=== PATIENT | male | born 1965 | race Caucasian/White ===

== ENCOUNTER 2022-06-17 10:07 | Inpatient (IN) | payer MEDICAID ==
[~2022-06-17] VITALS: Ht 157.5 cm; Wt 103.6 kg
[2022-06-17 10:17] VITALS: BP 217/176
[2022-06-17] MEDS ORDERED: LABETALOL 100 MG/20 ML VIAL IVP ONE (10:40)
[2022-06-17] MEDS ORDERED: LABETALOL 20 MG/4 ML VIAL IVP ONE (10:45)
[2022-06-17 11:12] LABS: BASOPHILS # (AUTO) 0.1 K/uL (0.00-0.22); BASOPHILS % (AUTO) 0.8 % (0.0-2.0); EOSINOPHILS # (AUTO) 0.1 K/uL (0-0.4); EOSINOPHILS % (AUTO) 0.6 % (0.0-4.0); HEMATOCRIT 46.4 % (36-52); HEMOGLOBIN 15.4 g/dL (12.0-18.0); LYMPHOCYTES # (AUTO) 1.8 K/uL (2.0-11.5); LYMPHOCYTES % (AUTO) 21.4 % (20.5-51.1); MEAN CORPUSCULAR HEMOGLOBIN 29 pg (27-31); MEAN CORPUSCULAR HGB CONC 33 g/dL (33-37); MEAN CORPUSCULAR VOLUME 85.9 fL (80-94); MONOCYTES # (AUTO) 0.8 K/uL (0.8-1.0); MONOCYTES % (AUTO) 9.2 % (1.7-9.3); NEUTROPHILS # (AUTO) 5.7 K/uL (1.8-7.7); PLATELET COUNT (AUTO) 163 K/uL (140-450); RED CELL DISTRIBUTION WIDTH 14.3 % (11.6-13.7); WHITE BLOOD COUNT (AUTO) 8.3 K/uL (4.8-10.8)
[2022-06-17] MEDS ORDERED: FUROSEMIDE 40 MG/4 ML VIAL IVP SCH ×2 (11:55→18:13)
[2022-06-17 12:05] LABS: FREE T4 (FREE THYROXINE) 1.35 ng/dL (0.76-1.46); THYROID STIMULATING HORMONE 4.97 uIU/mL (0.34-3.74)
[2022-06-17] MEDS ORDERED: ASPIRIN 81 MG TAB.CHEW PO ONE ×2 (12:20→12:30)
[2022-06-17 12:46] LABS: ANION GAP 18.3 (8-16); CARBON DIOXIDE 19.3 mmol/L (21-32); CHLORIDE 104 mmol/L (98-107); GLUCOSE 109 mg/dL (74-106); POTASSIUM 3.6 mmol/L (3.5-5.1); SODIUM SERUM 138 mmol/L (136-145)
[2022-06-17 12:47] LABS: ALBUMIN 3.8 g/dL (3.4-5.0); ASPARTATE AMINOTRANSFERASE 35 U/L (15-37); CREATININE 1.9 mg/dL (0.6-1.3); GFR ARICAN-AMERICAN 48 mL/min (>90); TOTAL BILIRUBIN 1.6 mg/dL (0.0-1.0); UREA NITROGEN, BLOOD 32 mg/dL (7-18)
[2022-06-17] MEDS ORDERED: MORPHINE SULFATE 2 MG/ML SYR IVP PRN (12:55)
[2022-06-17] MEDS ORDERED: DOCUSATE SODIUM 100 MG GELCAP PO PRN (12:55)
[2022-06-17] MEDS ORDERED: MAGNESIUM OXIDE 400 MG TAB PO PRN (12:55)
[2022-06-17] MEDS ORDERED: ACETAMINOPHEN 325 MG TAB PO PRN (12:55)
[2022-06-17] MEDS ORDERED: HYDROcodone/APAP 5/325 MG 1 TAB TAB PO PRN (12:55)
[2022-06-17] MEDS ORDERED: SODIUM PHOS / POTASSIUM PHOS 1 PKT PDR PO PRN (12:55)
[2022-06-17] MEDS ORDERED: ONDANSETRON 4 MG/2 ML VIAL IM/IVP PRN (12:55)
[2022-06-17] MEDS: METOPROLOL 25 MG TAB PO SCH ×2 (13:01→21:05)
[2022-06-17] MEDS ORDERED: METOPROLOL 50 MG TAB PO SCH (13:02)
[2022-06-17] MEDS ORDERED: hydrALAZINE 20 MG/ML VIAL ONE (14:04)
[2022-06-17] MEDS: hydrALAZINE 20 MG/ML VIAL IVP PRN ×2 (14:20→23:42)
[2022-06-17 14:29] LABS: APPEARANCE,URINE CLEAR (CLEAR); BILIRUBIN,URINE NEGATIVE (NEGATIVE); BLOOD, URINE 1+ (NEGATIVE); COLOR,URINE YELLOW (YELLOW); LEUKOCYTE ESTERASE ,URINE NEGATIVE (NEGATIVE); NITRITE, URINE NEGATIVE (NEGATIVE); UGLUCOSE NEGATIVE (NEGATIVE)
[2022-06-17] MEDS ORDERED: ASPIRIN 81 MG TAB.CHEW ONE (14:29)
[2022-06-17] MEDS: NIFEdipine 30 MG TABER PO SCH (14:35)
[2022-06-17 14:40] LABS: BARBITURATE, URINE NEGATIVE ng/ml (NEG <=200); BENZODIAZEPINE, URINE NEGATIVE ng/mL (NEG <=200); CANNABINOID, URINE NEGATIVE ng/mL (NEG <=50); COCAINE, URINE NEGATIVE ng/mL (NEG <=300); OPIATE, URINE NEGATIVE ng/mL (NEG <=2000); PHENCYCLIDINE SCREEN,URINE NEGATIVE ng/mL (NEG <=25)
[2022-06-17 14:44] LABS: RBC,URINE 0-5 /HPF (0-5); WBC,URINE 0-5 /HPF (0-5)
[2022-06-17 14:45] LABS: OTHER CASTS, URINE None Seen /LPF (None Seen)
[2022-06-17 15:27] LABS: MAGNESIUM 1.9 mg/dL (1.8-2.4); PHOSPHORUS 4.2 mg/dL (2.5-4.9)
--- NOTE | 2022-06-17 19:32 | NUR ---
ULTRA SOUND AT BEDSIDE.
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
--- NOTE | 2022-06-17 20:13 | NUR ---
urinal emptied at 900cc
--- NOTE | 2022-06-17 20:27 | NUR ---
called to give report to jyotsna amador, [phone]. states she needs about 10 mins, told her to please call back when ready
--- NOTE | 2022-06-17 21:09 | NUR ---
pt medicated per orders
--- NOTE | 2022-06-17 21:13 | NUR ---
report given to jyotsna amador at [phone]. pt going to room 120a.
--- NOTE | 2022-06-17 21:20 | NUR ---
RECEIVED REPORT FROM TY GUTIERREZ ER NURSE OVER THE PHONE.
--- NOTE | 2022-06-17 21:20 | NUR ---
Patient will be admitted to care of [facility]. Admited to TELE. Will go to [id number]. Belongings list completed. Report to MATT VEGA.
--- NOTE | 2022-06-17 21:30 | NUR ---
PT ARRIVED TO UNIT VIA GURNEY TO ROOM 120A. PT PLACED ON TELE, ALL FALLS PRECAUTIONS IN PLACE.
[2022-06-17 22:00] VITALS: BP 168/118
--- NOTE | 2022-06-17 22:30 | NUR ---
LAB CALLED WITH LATEST TROPONIN LEVEL OF 100. LAST TROPONIN WAS 106. TROPONIN HAS BEEN TRENDING DOWN.
--- NOTE | 2022-06-17 23:00 | NUR ---
PT IN BED ON ROOM AIR HE DENIES ANY PAIN . [facility] [employer] [facility] USED TO INTERPRET ADMISSION QUESTIONS THIRD MILLER JEANNETTE # [id number]. PT DENIES ANY DRUG USE OR SMOKING. HE DENIES ANY PAIN. ADMISSION B/P REMAINS HIGH AT 168/118 WILL GIVE IVP/PRN HYDRALAZINE FOR HTN. LUNG SOUNDS DIMINISHED, BOWEL SOUNDS HEARD IN ALL 4 QUADS. ABDOMEN SOFT NON TENDER. PT HAS PLUS 1 PITTING EDEMA OF LOWER LEGS AND RIGHT HAND. DISCUSSED RESULTS OF TESTS AND TEACHING OF DISEASE PROCESS. PT VERBALIZED UNDERSTANDING WITH REINFORCEMENT HE HAS A 20G ON LEFT F/A FLUSHED AND SALINE LOCKED. PT ORIENTED TO ROOM, BED AND CALL LUIS. ALL UNIVERSAL FALLS PRECAUTIONS IN PLACE.
[2022-06-18] VITALS: BP 160/105
--- NOTE | 2022-06-18 | NUR ---
PT WAS GIVEN HYDRAZALINE FOR HTN WILL CONTINUE TO MONITOR FOR DECREASED B/P.
--- NOTE | 2022-06-18 01:00 | NUR ---
B/P WENT DOWN SLIGHTLY AND IT WAS 160/105. PT GIVEN URINAL AND ASKED TO PLEASE SUPPLY SAMPLE. PT DENIES ANY PAIN. ALL UNIVERSAL FALLS PRECAUTIONS IN PLACE.
[2022-06-18 04:00] VITALS: BP 170/68
[2022-06-18 06:32] LABS: BASOPHILS % (AUTO) 0.5 % (0.0-2.0); EOSINOPHILS # (AUTO) 0.1 K/uL (0-0.4); EOSINOPHILS % (AUTO) 1.1 % (0.0-4.0); HEMATOCRIT 43.5 % (36-52); HEMOGLOBIN 14.4 g/dL (12.0-18.0); LYMPHOCYTES # (AUTO) 1.5 K/uL (2.0-11.5); LYMPHOCYTES % (AUTO) 18.7 % (20.5-51.1); MEAN CORPUSCULAR HEMOGLOBIN 29 pg (27-31); MEAN CORPUSCULAR HGB CONC 33 g/dL (33-37); MEAN CORPUSCULAR VOLUME 86.1 fL (80-94); MONOCYTES # (AUTO) 0.7 K/uL (0.8-1.0); MONOCYTES % (AUTO) 8.3 % (1.7-9.3); NEUTROPHILS # (AUTO) 5.6 K/uL (1.8-7.7); NEUTROPHILS % (AUTO) 71.4 % (42.2-75.2); PLATELET COUNT (AUTO) 154 K/uL (140-450); RED BLOOD CELL COUNT(AUTO) 5.05 MIL/uL (4.20-6.10); RED CELL DISTRIBUTION WIDTH 14.1 % (11.6-13.7); WHITE BLOOD COUNT (AUTO) 7.8 K/uL (4.8-10.8)
[2022-06-18] MEDS: hydrALAZINE 20 MG/ML VIAL IVP PRN (06:39)
--- NOTE | 2022-06-18 06:44 | NUR ---
PT B/P 170/68 PT GIVEN IVP/PRN HYDRALAZINE. PT ALOS ABLE TO PROVIDE URINE SAMPLE WHICH WAS COLLECTED AND TAKEN TO LAB WILL ENDORSE TO AM SHIFT TO REEVALUATE B/P. PT DENIES ANY PAIN OR DISTRESS. ALL UNIVERSAL FALLS PRECAUTIONS IN PLACE.
[2022-06-18 06:53] LABS: ANION GAP 12.1 (8-16); CARBON DIOXIDE 27.3 mmol/L (21-32); CREATININE 1.8 mg/dL (0.6-1.3); POTASSIUM 3.4 mmol/L (3.5-5.1)
--- NOTE | 2022-06-18 07:30 | NUR ---
RECEIVED BEDSIDE REPORT FROM STONE SETTER NURSE, PT AWAKE ALERT ABLE TO LET NEEDS KNOWN.IV TO LAC 18G, PATENT INTACT, INFUSING WELL, PT ON 2LPM O2 VIA NC, NO SOB NOTED, INITIAL ASSESSMENT DONE, ALL SAFETY PRECAUTION MET, CALL LIGHT WITHIN REACH, WILL CONTINUE TO MONITOR.
[2022-06-18 08:00] VITALS: BP 152/80
[2022-06-18] MEDS ORDERED: METOPROLOL 25 MG TAB PO SCH (09:00)
[2022-06-18] MEDS: ASPIRIN 81 MG TAB.CHEW PO SCH (09:11)
[2022-06-18] MEDS: NIFEdipine 30 MG TABER PO SCH (09:12)
[2022-06-18] MEDS: PANTOPRAZOLE 40 MG TABEC PO SCH (09:13)
[2022-06-18 12:00] VITALS: BP 125/89
[2022-06-18 13:05] LABS: APPEARANCE,URINE SL CLOUDY (CLEAR); BILIRUBIN,URINE NEGATIVE (NEGATIVE); BLOOD, URINE NEGATIVE (NEGATIVE); COLOR,URINE YELLOW (YELLOW); LEUKOCYTE ESTERASE ,URINE NEGATIVE (NEGATIVE); NITRITE, URINE NEGATIVE (NEGATIVE); UGLUCOSE NEGATIVE (NEGATIVE)
[2022-06-18 13:38] LABS: RBC,URINE 0-5 /HPF (0-5); WBC,URINE 0-5 /HPF (0-5)
[2022-06-18 13:39] LABS: TRICHOMONAS,URINE None Seen /HPF (None Seen); YEAST,URINE None Seen /HPF (None Seen)
[2022-06-18 16:00] VITALS: BP 144/83
[2022-06-18] MEDS: POTASSIUM CHLORIDE 10 MEQ TABER PO PRN (16:17)
--- NOTE | 2022-06-18 19:31 | NUR ---
ENDORSED PT TO GROUND WORKER NURSE FOR CONTINUOUS FO CARE
--- NOTE | 2022-06-18 19:32 | NUR ---
Received report from morning nurse. Patient is awake and alert, resting on bed. Breathing even and unlabored, on oxygen of 2L/NC. No complaints of pain. will continue to monitor patient.
[2022-06-18 20:00] VITALS: BP 155/94
[2022-06-18] MEDS: METOPROLOL 25 MG TAB PO SCH (20:18)
[2022-06-18 21:00] LABS: TOTAL PROTEIN URINE 90.9 MG/DL
[2022-06-19] VITALS: BP 153/91
--- NOTE | 2022-06-19 | NUR ---
Vital signs taken and recorded, stable. No pain complaints.
[2022-06-19 04:00] VITALS: BP 156/90
[2022-06-19] MEDS: METOPROLOL 25 MG TAB PO SCH (05:04)
[2022-06-19 05:49] LABS: BASOPHILS % (AUTO) 0.5 % (0.0-2.0); EOSINOPHILS # (AUTO) 0.1 K/uL (0-0.4); EOSINOPHILS % (AUTO) 1.9 % (0.0-4.0); HEMATOCRIT 43.8 % (36-52); HEMOGLOBIN 14.4 g/dL (12.0-18.0); LYMPHOCYTES # (AUTO) 1.6 K/uL (2.0-11.5); MEAN CORPUSCULAR HEMOGLOBIN 29 pg (27-31); MEAN CORPUSCULAR HGB CONC 33 g/dL (33-37); MEAN CORPUSCULAR VOLUME 87.4 fL (80-94); MONOCYTES # (AUTO) 0.7 K/uL (0.8-1.0); MONOCYTES % (AUTO) 10.3 % (1.7-9.3); NEUTROPHILS # (AUTO) 4.5 K/uL (1.8-7.7); NEUTROPHILS % (AUTO) 64.3 % (42.2-75.2); PLATELET COUNT (AUTO) 158 K/uL (140-450); RED BLOOD CELL COUNT(AUTO) 5.01 MIL/uL (4.20-6.10); RED CELL DISTRIBUTION WIDTH 14.2 % (11.6-13.7); WHITE BLOOD COUNT (AUTO) 7.1 K/uL (4.8-10.8)
--- NOTE | 2022-06-19 07:11 | NUR ---
Report given to morning shift RNAlexandra. Patient resting on bed, stable with no complaints of pain.
[2022-06-19 08:00] VITALS: BP 144/98
--- NOTE | 2022-06-19 08:05 | NUR ---
RECEIVE ENDORSEMENT FROM PM SHIFT NURSE THAT PATIENT REST AT BED, PIV LAC 20G SALINE LOCK PATENT. ON 2 LITER VIA NC. WILL CONTINUE TO MONITOR
[2022-06-19 09:00] LABS: ANION GAP 17.1 (8-16); CARBON DIOXIDE 23.7 mmol/L (21-32); POTASSIUM 3.8 mmol/L (3.5-5.1)
[2022-06-19] MEDS ORDERED: hydroCHLOROthiazide 25 MG TAB PO SCH (09:00)
[2022-06-19 09:06] LABS: HEPATITIS B SURFACE ANTIGEN Negative (Negative); IMMUNOGLOBULIN A 193 mg/dL (90-386); IMMUNOGLOBULIN G 1057 mg/dL (603-1613); IMMUNOGLOBULIN M 98 mg/dL (20-172)
[2022-06-19] MEDS: METOPROLOL SUCCINATE 50 MG TABER PO SCH ×2 (09:15→13:15)
[2022-06-19] MEDS: PANTOPRAZOLE 40 MG TABEC PO SCH (09:15)
[2022-06-19] MEDS: ASPIRIN 81 MG TAB.CHEW PO SCH (09:15)
[2022-06-19] MEDS: NIFEdipine 60 MG TABER PO SCH ×2 (09:16→21:35)
--- NOTE | 2022-06-19 10:51 | NUR ---
PATIENT HAS BEEN SCREENED AND CATEGORIZED MODERATE NUTRITION RISK. PATIENT WILL BE SEEN WITHIN 3-5 DAYS OF ADMISSION. 06/18/22-06/22/[address]
[2022-06-19 12:00] VITALS: BP 152/98
[2022-06-19 16:00] VITALS: BP 122/80
[2022-06-19] MEDS ORDERED: hydrALAZINE 10 MG TAB PO SCH (17:00)
[2022-06-19] MEDS: FUROSEMIDE 40 MG/4 ML VIAL IVP SCH (17:03)
--- NOTE | 2022-06-19 19:55 | NUR ---
ENDORSE PATIENT TO PM SHIFT NURSE THAT PATIENT STABLE, REST IN BED. PIV SALINE LOCK AT RAC 20G PATENT.
--- NOTE | 2022-06-19 19:56 | NUR ---
RECD RESTING IN BE, AWAKE, A.OX4. RESPIRATION EVEN AND UNLABORED. ON 02 AT 2 LITERS VIA N/C. IV SALINE LOCK AT THE LEFT AC G20, PATENT AND INTACT. INDEPENDENT, ABLE TO AMBULATE BY HIMSELF. DENIES PAIN 0/10.
[2022-06-19 20:00] VITALS: BP 148/97
--- NOTE | 2022-06-19 20:00 | NUR ---
Patient's Plan of Care was discussed and reviewed with CHRIS JAMIL
[2022-06-19] MEDS: hydrALAZINE 25 MG TAB PO SCH (21:33)
[2022-06-19] MEDS: ISOSORBIDE DINITRATE 20 MG TAB PO SCH (21:34)
[2022-06-19] MEDS: APIXABAN 2.5 MG TAB PO SCH (21:37)
--- NOTE | 2022-06-19 21:37 | NUR ---
SCHEDULED MEDICATIONS FOR THE NIGHT ADMINISTERED.
--- NOTE | 2022-06-19 23:00 | NUR ---
AMBULATED TO THE BR. TO VOID, GAIT STEADY.
[2022-06-20] VITALS: BP 142/90
--- NOTE | 2022-06-20 01:00 | NUR ---
SLEEPING COMFORTABLY IN BED. RESPIRATION EVEN AND UNLABORED.
[2022-06-20 04:00] VITALS: BP 148/81
--- NOTE | 2022-06-20 04:00 | NUR ---
VS STABLE. AFIB ON TELE BUT CONTROLLED.
[2022-06-20] MEDS: ISOSORBIDE DINITRATE 20 MG TAB PO SCH ×2 (05:18→12:23)
[2022-06-20] MEDS: hydrALAZINE 25 MG TAB PO SCH ×2 (05:18→12:23)
[2022-06-20 05:59] LABS: BASOPHILS # (AUTO) 0.1 K/uL (0.00-0.22); BASOPHILS % (AUTO) 0.7 % (0.0-2.0); EOSINOPHILS # (AUTO) 0.2 K/uL (0-0.4); EOSINOPHILS % (AUTO) 3.1 % (0.0-4.0); HEMATOCRIT 41.5 % (36-52); HEMOGLOBIN 13.8 g/dL (12.0-18.0); LYMPHOCYTES # (AUTO) 1.5 K/uL (2.0-11.5); LYMPHOCYTES % (AUTO) 19.1 % (20.5-51.1); MEAN CORPUSCULAR HEMOGLOBIN 29 pg (27-31); MEAN CORPUSCULAR HGB CONC 33 g/dL (33-37); MEAN CORPUSCULAR VOLUME 86.1 fL (80-94); MONOCYTES # (AUTO) 0.8 K/uL (0.8-1.0); NEUTROPHILS # (AUTO) 5.3 K/uL (1.8-7.7); NEUTROPHILS % (AUTO) 67.1 % (42.2-75.2); PLATELET COUNT (AUTO) 158 K/uL (140-450); RED BLOOD CELL COUNT(AUTO) 4.82 MIL/uL (4.20-6.10); RED CELL DISTRIBUTION WIDTH 14.1 % (11.6-13.7); WHITE BLOOD COUNT (AUTO) 7.9 K/uL (4.8-10.8)
--- NOTE | 2022-06-20 06:00 | NUR ---
ABLE TO SLEEP WELL. TOLERATED WELL ALL NEW BP MEDICATIONS.
[2022-06-20 06:15] LABS: ANION GAP 10.9 (8-16); CARBON DIOXIDE 31.4 mmol/L (21-32); CREATININE 2.1 mg/dL (0.6-1.3); POTASSIUM 3.3 mmol/L (3.5-5.1)
--- NOTE | 2022-06-20 07:00 | NUR ---
CONDITION REMAIN STABLE. WILL ENDORSE TO AM SHIFT NURSE FOR CONTINUITY OF CARE.
--- NOTE | 2022-06-20 07:30 | NUR ---
RECEIVED BEDSIDE REPORT FROM OBIEE ARCHITECT NURSE FOR CONTINUOUS OF CARE, PT ALERT ORIENTED, ABLE TO LET NEEDS KNOWN, ENGLISH SPEAKING. PT RESTING, NO DISTRESS NOTED, PT ON 2LPM O2 VIA NC NO SOB NOTED, IV TO LAC 20G PATENT INTACT, SL. INITIAL ASSESSMENT DONE, ALL SAFETY PRECAUTION MET, CALL LIGHT WITHIN REACH, WILL CONTINUE TO MONITOR.
[2022-06-20 08:00] VITALS: BP 140/81
[2022-06-20] MEDS: APIXABAN 2.5 MG TAB PO SCH (08:47)
[2022-06-20] MEDS: NIFEdipine 60 MG TABER PO SCH (08:47)
[2022-06-20] MEDS: FUROSEMIDE 40 MG/4 ML VIAL IVP SCH (08:47)
[2022-06-20] MEDS: METOPROLOL SUCCINATE 50 MG TABER PO SCH ×2 (08:48→12:23)
[2022-06-20] MEDS: PANTOPRAZOLE 40 MG TABEC PO SCH (08:48)
[2022-06-20] MEDS: POTASSIUM CHLORIDE 10 MEQ TABER PO PRN (09:44)
[2022-06-20 12:00] VITALS: BP 122/80
--- NOTE | 2022-06-20 14:30 | NUR ---
DC PLANNING: HE PATIENT PRESENTED FROM A CLINIC WITH C/O HTN AND TACHYCARDIA, NO PRIOR MEDICAL HISTORY. HE PRESENTED TO THE CLINIC WITH C/O SLEEPLESS, AND LEG CRAMPS AND FATIGUE, BLE EDEMA. EKG SHOWS A FLUTTER, TROPONIN ELEVATED, HR IN THE 150S, SYSTOLIC BP 220. ADMITTED WITH DX OF A FLUTTER WITH AVR, HTN EMERGENCY, NSTEMI AND NEW ONSET CHF WITH EXACERBATION. CR 1.9, ORDERS FOR CARDIOLOGY AND NEPHROLOGY CONSULTS. STARTED ON LASIX IV BID, HYDRALAZINE, ISORDIL. CM SPOKE WITH THE PATIENT AND HIS DAUGHTER ROBBY AT BEDSIDE AND CONFIRMED HIS ADDRESS AND PHONE NUMBER. HE LIVES WITH HIS , DAUGHTER, BROTHER AND SISTER IN A GROUND FLOOR APARTMENT AND IS INDEPENDENT WITH ALL ACTIVITIES. HE WORKS A UTILITY SALES REPRESENTATIVE AND [facility] [employer] [facility] [place]. HE CURRENTLY HAS PRESUMPTIVE M/KIANA AND WAS EDUCATED ON THE FOLLOW UP PHONE HE'LL GET TO COMPLETE THE APPLICATION PROCESS FOR FULL SCOPE M/KIANA. HE WILL FOLLOW UP WITH THE PATIENT COMPANION, CM ALSO SPOKE WITH HIS DAUGHTER ABOUT FINDING A PMD ONCE THE PATIENT HAS FULL SCOPE M/KIANA. DC PLAN IS TO RETURN HOME WITH FAMILY WHEN CLINICALLY STABLE AND THEY WILL PROVIDE TRANSPORT HOME. CM WILL FOLLOW.
[2022-06-20] MEDS ORDERED: FURO40TA9 PO (15:01)
[2022-06-20] MEDS ORDERED: PANT40EC56 PO (15:01)
[2022-06-20] MEDS ORDERED: Potassium Chloride PO (15:01)
[2022-06-20] MEDS ORDERED: ISOS20TA13 PO (15:01)
[2022-06-20] MEDS ORDERED: METO50TE2 PO (15:01)
[2022-06-20] MEDS ORDERED: NIFE60TA39 PO (15:01)
[2022-06-20] MEDS ORDERED: APIX2.5 PO (15:01)
--- NOTE | 2022-06-20 15:28 | NUR ---
DISCHARGE PAPERWORKS AND EXPLAINED VIA IFEANYIYCE VISCOSITY WORKER GALILEA [id number], PT STATED UNDERSTANDING. ALL QUESTION ANSWERED. PT STATED UNDERSTANDING, PT DAUGHTER AT BEDSIDE STATED UNDERSTANDING. IV TAKEN OUT, CATH INTACT, WRIST BAND TAKEN OFF.
--- NOTE | 2022-06-20 15:30 | NUR ---
PT LEFT UNIT VIA CHAIR, IN STABLE CONDITION
[2022-06-20 16:00] VITALS: BP 122/80
[2022-06-20] MEDS ORDERED: FUROSEMIDE 40 MG TAB PO SCH (17:00)
[2022-06-20] MEDS ORDERED: POTASSIUM CHLORIDE 10 MEQ TABER PO SCH (21:00)
[2022-06-21 12:07] LABS: PROTEIN, TOTAL, URINE 65.3 mg/dL (Not Estab.)
[2022-06-22 12:08] LABS: ANTI-NUCLEAR ANTIBODY TITER Negative (.)
== END 2022-06-20 15:33 | disposition home or self-care (01) | DRG 199 ==
LOC: MED 10:07 → MTU 12:32
PROVIDERS: ADMIT Hospitalist; ATTEND Hospitalist
DX: I16.1 Hypertensive emergency (principal); N17.0 Acute kidney failure with tubular necrosis; I50.21 Acute systolic (congestive) heart failure; I13.0 Hypertensive heart and chronic kidney disease with heart failure and stage 1 through stage 4 chronic kidney disease, or unspecified chronic kidney disease; E86.0 Dehydration; I47.1 Supraventricular tachycardia; N18.9 Chronic kidney disease, unspecified; I48.92 Unspecified atrial flutter; E03.8 Other specified hypothyroidism; Z20.822 Contact with and (suspected) exposure to COVID-19; I24.8 Other forms of acute ischemic heart disease
CPT/HCPCS: 36415; 71045; 76770; 80048; 80053; 80305; 81001; 82550; 82570; 83036; 83735; 83880; 84100; 84156; 84165; 84300; 84439; 84443; 84484; 85025; 85379; 86038; 86160; 86334; 86803; 87081; 87086; 87340; 93005; 93970; 96374; 96375; 99291; G0482; J0360; J1644; J1940; J3490; Q0092